=== PATIENT | male | born 1985 | race Caucasian/White ===

== ENCOUNTER 2020-07-24 17:04 | Outpatient (REF) | payer OTHER, SELFPAY ==
[2020-07-24 18:06] LABS: Hemoglobin 15.8 g/dl (14.0-18.0); Mean Corpuscular HGB Conc 32.9 g/dl (31.0-36.0); Mean Corpuscular Hemoglobin 29.4 pg (27.0-33.0); Mean Corpuscular Volume 89.2 fL (80-98); Mean Platelet Volume 10.1 fL (9.4-12.4); Platelet Count 292 X10*3/uL (160-400); Red Blood Count 5.38 X10*6/uL (4.60-5.80); Red Cell Distribution Width 12.6 % (11.0-16.0); White Blood Count 8.2 X10*3/uL (4.8-10.8)
[2020-07-24 18:29] LABS: Alanine Aminotransferase 19 U/L (0-40); Albumin Level 4.7 g/dL (3.5-5.0); Alkaline Phosphatase 125 U/L (39-117); Anion Gap 15 (12-20); Aspartate Amino Transferase 19 U/L (5-37); Bilirubin Direct 0.6 mg/dL (0.0-0.5); Bilirubin Total 1.6 mg/dL (0.0-1.0); Blood Urea Nitrogen 9 mg/dL (9-16); Calcium 10.1 mg/dL (8.4-10.2); Carbon Dioxide 32 mmol/L (22-29); Chloride 101 mmol/L (96-108); Cholesterol 136 mg/dL; Estimated Glomerular Filt Rate > 60; Glucose Random 89 mg/dL (60-115); HDL Cholesterol 44 mg/dL; LDL Cholesterol Calculated 79 mg/dl; Potassium 4.5 mmol/L (3.3-5.1); Sodium 143 mmol/L (135-145); Total Protein 8.3 g/dL (6.5-8.0); Triglycerides 66 mg/dL
[2020-07-24 18:34] LABS: Glucose Urine UA NEG (NEG); Leukocyte Esterase Urine NEG (NEG); Nitrite Urine NEG (NEG); Specific Gravity - Urine 1.025 (1.005-1.025); Urine Blood NEG (NEG); Urine Ketones NEG (NEG); Urine Protein TRACE MG/DL (NEG-TRACE)
[2020-07-24 18:42] LABS: Color Urine YELLOW
[2020-07-24 18:43] LABS: Appearance Urine CLEAR
[2020-07-24 18:52] LABS: Thyroid Stimulating Hormone 0.66 uIU/mL (0.32-4.0)
[2020-07-24 19:04] LABS: Folate 14.7 ng/mL (> or = 4.0); Vitamin B12 370 pg/mL (200-900)
[2020-07-29 15:26] LABS: Vitamin D 25-OH, D2 <4 ng/mL; Vitamin D 25-OH, D3 45 ng/mL; Vitamin D 25-OH, Total 45 ng/mL (30-100)
== END 2020-07-24 17:05 | disposition home or self-care (01) ==
LOC: HO.LAB 17:04
PROVIDERS: Visit Provider Internal Medicine
DX: Z00.00 Encounter for general adult medical examination without abnormal findings (principal)
CPT/HCPCS: 36415; 80048; 80061; 80076; 81003; 82306; 82607; 82746; 84443; 85027